=== PATIENT | female | born 2000 | race Caucasian/White ===

== ENCOUNTER 2024-08-21 03:03 | Emergency (ER) | payer OTHER ==
[~2024-08-21] VITALS: Ht 167.6 cm; Wt 66.0 kg
[2024-08-21 03:08] VITALS: O2SAT 98
[2024-08-21 04:34] VITALS: BP 130/72; PULSE 99; RESP 15; TEMP 36.9; O2SAT 97
== END 2024-08-21 05:00 | disposition home or self-care (01) ==
LOC: ER 03:03
DX: F10.129 Alcohol abuse with intoxication, unspecified (principal); F14.129 Cocaine abuse with intoxication, unspecified; R07.9 Chest pain, unspecified; Y90.9 Presence of alcohol in blood, level not specified
CPT/HCPCS: 93005; 99283